=== PATIENT | female | born 1940 | race Two or more races ===

== ENCOUNTER 2022-04-14 16:41 | Inpatient (IN) | payer MEDICARE, OTHER ==
[~2022-04-14] VITALS: Ht 121.9 cm; Wt 34.5 kg
[2022-04-14] MEDS ORDERED: ACETAMINOPHEN 325 MG TABLET PO ONE (20:00)
[2022-04-14] MEDS ORDERED: ACETAMINOPHEN 325 MG TABLET ONE (20:02)
[2022-04-14 21:06] LABS: BASOPHILS # (AUTO) 0.1 K/uL (0.0-0.2); BASOPHILS % (AUTO) 0.8 % (0.0-2.0); EOSINOPHILS % (AUTO) 1.4 % (0.0-6.0); HEMATOCRIT 38 % (33-45); HEMOGLOBIN 11.9 g/dL (11.5-14.8); LYMPHOCYTES # (AUTO) 1.2 K/uL (0.8-4.8); LYMPHOCYTES % (AUTO) 15.9 % (20.0-44.0); MEAN CORPUSCULAR HGB CONC 32 g/dl (31.0-36.0); MEAN CORPUSCULAR VOLUME 87 fL (82-100); MONOCYTES # (AUTO) 0.5 K/uL (0.1-1.30); NEUTROPHILS # (AUTO) 5.7 K/uL (1.8-8.9); NEUTROPHILS % (AUTO) 75.9 % (43.0-81.0); RED BLOOD CELL COUNT(AUTO) 4.34 MIL/uL (4.0-5.2); WHITE BLOOD COUNT (AUTO) 7.5 K/uL (4.3-11.0)
[2022-04-14 21:13] LABS: CALCIUM, SERUM 8.5 mg/dL (8.5-10.1); CREATININE 0.8 mg/dL (0.6-1.3); POTASSIUM 3.8 mmol/L (3.5-5.1)
[2022-04-14 21:20] LABS: ALBUMIN 3.3 g/dL (3.4-5.0); BILIRUBIN,DIRECT 0.1 mg/dL (0.0-0.2); BILIRUBIN,TOTAL 0.4 mg/dL (0.2-1.0); TOTAL PROTEIN, SERUM 7.1 g/dL (6.4-8.2)
[2022-04-14 21:49] LABS: PLATELET COUNT (AUTO) 41 K/uL (150-450)
[2022-04-14 21:54] LABS: LYMPHOCYTES % (MANUAL) 29 % (16-48); MONOCYTES % (MANUAL) 4 % (0-11.0); NEUTROPHILS % (MANUAL) 67 (42-76)
[2022-04-14] MEDS ORDERED: ACETAMINOPHEN 325 MG TABLET PO PRN (22:00)
[2022-04-14] MEDS ORDERED: MORPHINE SULFATE INJ 2 MG/ML DISP.SYRIN IV PRN (22:00)
[2022-04-14] MEDS ORDERED: ONDANSETRON HCL/PF 4 MG/2 ML VIAL IVP PRN (22:00)
[2022-04-14] MEDS ORDERED: ENOXAPARIN SODIUM 40 MG/0.4 ML DISP.SYRIN SQ SCH (22:00)
[2022-04-14 23:00] VITALS: BP 159/100
[2022-04-15 06:41] LABS: BASOPHILS # (AUTO) 0.1 K/uL (0.0-0.2); BASOPHILS % (AUTO) 0.9 % (0.0-2.0); EOSINOPHILS % (AUTO) 2.7 % (0.0-6.0); HEMATOCRIT 33 % (33-45); HEMOGLOBIN 10.4 g/dL (11.5-14.8); LYMPHOCYTES # (AUTO) 1.5 K/uL (0.8-4.8); MEAN CORPUSCULAR HGB CONC 32 g/dl (31.0-36.0); MEAN CORPUSCULAR VOLUME 87 fL (82-100); MONOCYTES # (AUTO) 0.5 K/uL (0.1-1.30); MONOCYTES % (AUTO) 7.4 % (2.0-12.0); NEUTROPHILS # (AUTO) 5.1 K/uL (1.8-8.9); RED BLOOD CELL COUNT(AUTO) 3.76 MIL/uL (4.0-5.2); WHITE BLOOD COUNT (AUTO) 7.4 K/uL (4.3-11.0)
[2022-04-15 06:43] LABS: ALBUMIN 2.8 g/dL (3.4-5.0); BILIRUBIN,TOTAL 0.6 mg/dL (0.2-1.0); CALCIUM, SERUM 8.2 mg/dL (8.5-10.1); CREATININE 0.6 mg/dL (0.6-1.3); MAGNESIUM 2.2 mg/dL (1.8-2.4); PHOSPHORUS 3.1 mg/dL (2.5-4.9); POTASSIUM 3.3 mmol/L (3.5-5.1); TOTAL PROTEIN, SERUM 6.1 g/dL (6.4-8.2)
[2022-04-15 08:00] VITALS: BP 90/50
[2022-04-15] MEDS ORDERED: LETR2.5T8 PO (09:51)
[2022-04-15] MEDS ORDERED: METO25TA20 PO (09:51)
[2022-04-15] MEDS ORDERED: POTASSIUM CHLORIDE 20 MEQ TAB.PRT.SR PO SCH (10:00)
[2022-04-15 13:18] LABS: NEUTROPHILS % (MANUAL) 83 (42-76); PLATELET COUNT (AUTO) 85 K/uL (150-450)
[2022-04-15 13:19] LABS: BAND % (MANUAL) 2 % (0.0-5.0); EOSINOPHILS % (MANUAL) 2 % (0-4); LYMPHOCYTES % (MANUAL) 10 % (16-48); MONOCYTES % (MANUAL) 3 % (0-11.0)
[2022-04-15 13:55] LABS: C-REACTIVE PROTEIN 0.3 mg/dL (0.0-0.9); THYROID STIMULATING HORMONE 2.508 uIU/mL (0.358-3.74)
[2022-04-15] MEDS ORDERED: LETROZOLE 2.5 MG TABLET PO SCH (15:00)
[2022-04-15 16:00] VITALS: BP 100/56
[2022-04-15 20:00] VITALS: BP 90/58
[2022-04-15] MEDS ORDERED: HYDROCODONE/APAP 5/325MG TABLET PO PRN (22:00)
[2022-04-16 08:00] VITALS: BP 150/94
[2022-04-16 08:07] LABS: IMMUNOGLOBULIN A, SERUM 244 mg/dL (64-422); IMMUNOGLOBULIN G, SERUM 1000 mg/dL (586-1602); IMMUNOGLOBULIN M, SERUM 44 mg/dL (26-217)
[2022-04-16 11:07] LABS: *ANA ANTI-CENTROMERE B AB <0.2 AI (0.0-0.9); *ANA ANTI-DNA(DS) AB, QN <1 IU/mL (0-9); *ANA ANTI-JO-1 <0.2 AI (0.0-0.9); *ANA ANTICHROMATIN ANTIBODY 2.5 AI (0.0-0.9); *ANA RNP ANTIBODIES 0.2 AI (0.0-0.9); *ANA SJOGREN'S ANTI-SS-A <0.2 AI (0.0-0.9); *ANA SJOGREN'S ANTI-SS-B <0.2 AI (0.0-0.9); *ANAANTI-SCLERODERMA-70 AB <0.2 AI (0.0-0.9); *ANASMITH AB >8.0 AI (0.0-0.9)
[2022-04-16 12:07] LABS: CANCER AG, 15-3 14.6 U/mL (0.0-25.0)
[2022-04-16 13:06] LABS: *SPE ALPHA-1-GLOBULIN 0.3 g/dL (0.0-0.4); *SPE ALPHA-2-GLOBULIN 0.6 g/dL (0.4-1.0); *SPE BETA GLOBULIN 0.9 g/dL (0.7-1.3); *SPE M-SPIKE Not Observed g/dL (Not Observed)
[2022-04-16 15:46] LABS: BASOPHILS % (AUTO) 0.5 % (0.0-2.0); HEMATOCRIT 36 % (33-45); HEMOGLOBIN 11.3 g/dL (11.5-14.8); LYMPHOCYTES # (AUTO) 0.7 K/uL (0.8-4.8); LYMPHOCYTES % (AUTO) 7.7 % (20.0-44.0); MEAN CORPUSCULAR HGB CONC 32 g/dl (31.0-36.0); MEAN CORPUSCULAR VOLUME 86 fL (82-100); MONOCYTES # (AUTO) 0.6 K/uL (0.1-1.30); MONOCYTES % (AUTO) 6.5 % (2.0-12.0); NEUTROPHILS # (AUTO) 8.2 K/uL (1.8-8.9); NEUTROPHILS % (AUTO) 85.3 % (43.0-81.0); RED BLOOD CELL COUNT(AUTO) 4.15 MIL/uL (4.0-5.2); WHITE BLOOD COUNT (AUTO) 9.6 K/uL (4.3-11.0)
[2022-04-16 15:48] LABS: BILIRUBIN,URINE NEGATIVE (NEGATIVE); COLOR,URINE YELLOW (YELLOW); LEUKOCYTE ESTERASE ,URINE NEGATIVE (NEGATIVE); NITRITE, URINE NEGATIVE (NEGATIVE); PROTEIN,URINE 1+ mg/dl (NEGATIVE); UGLUCOSE NEGATIVE (NEGATIVE)
[2022-04-16 15:58] LABS: BACTERIA,URINE None seen /HPF (None Seen); MUCUS,URINE Few /LPF (None Seen); SQUAMOUS EPITHELIAL CELL,UR 0-2 /HPF (None Seen); WBC,URINE 0-2 /HPF (0-3)
[2022-04-16 16:00] VITALS: BP 143/98
[2022-04-16 16:09] LABS: PLATELET COUNT (AUTO) 19 K/uL (150-450)
[2022-04-16 19:17] LABS: BAND % (MANUAL) 4 % (0.0-5.0); LYMPHOCYTES % (MANUAL) 6 % (16-48); MONOCYTES % (MANUAL) 3 % (0-11.0); NEUTROPHILS % (MANUAL) 87 (42-76)
[2022-04-16] MEDS: CEFTRIAXONE 1 G in IV D5W 50 ML IV SCH ×2 (21:00→21:03)
[2022-04-16] MEDS: LETROZOLE 2.5 MG TABLET PO SCH (21:06)
[2022-04-17 08:00] VITALS: BP 154/95
[2022-04-17 08:23] LABS: BASOPHILS # (AUTO) 0.1 K/uL (0.0-0.2); BASOPHILS % (AUTO) 0.7 % (0.0-2.0); EOSINOPHILS % (AUTO) 0.5 % (0.0-6.0); HEMATOCRIT 33 % (33-45); HEMOGLOBIN 10.7 g/dL (11.5-14.8); LYMPHOCYTES # (AUTO) 1.3 K/uL (0.8-4.8); LYMPHOCYTES % (AUTO) 16.3 % (20.0-44.0); MEAN CORPUSCULAR HGB CONC 32 g/dl (31.0-36.0); MEAN CORPUSCULAR VOLUME 86 fL (82-100); MONOCYTES # (AUTO) 0.7 K/uL (0.1-1.30); MONOCYTES % (AUTO) 8.4 % (2.0-12.0); NEUTROPHILS # (AUTO) 5.8 K/uL (1.8-8.9); NEUTROPHILS % (AUTO) 74.1 % (43.0-81.0); RED BLOOD CELL COUNT(AUTO) 3.86 MIL/uL (4.0-5.2); WHITE BLOOD COUNT (AUTO) 7.8 K/uL (4.3-11.0)
[2022-04-17 08:25] LABS: CALCIUM, SERUM 8.4 mg/dL (8.5-10.1); CARBON DIOXIDE 26 mmol/L (21-32); CHLORIDE 103 mmol/L (98-107); CREATININE 0.8 mg/dL (0.6-1.3); GLUCOSE 74 mg/dL (74-106); MAGNESIUM 2.2 mg/dL (1.8-2.4); PHOSPHORUS 3.9 mg/dL (2.5-4.9); POTASSIUM 3.3 mmol/L (3.5-5.1); SODIUM SERUM 137 mmol/L (136-145); UREA NITROGEN, BLOOD 34 mg/dL (7-18)
[2022-04-17 08:31] VITALS: BP 154/95
[2022-04-17] MEDS: LETROZOLE 2.5 MG TABLET PO SCH (09:00)
[2022-04-17] MEDS ORDERED: POTASSIUM CHLORIDE 20 MEQ TAB.PRT.SR PO SCH (10:30)
[2022-04-17 13:15] LABS: BAND % (MANUAL) 5 % (0.0-5.0); NEUTROPHILS % (MANUAL) 72 (42-76)
[2022-04-17 13:16] LABS: EOSINOPHILS % (MANUAL) 1 % (0-4); LYMPHOCYTES % (MANUAL) 15 % (16-48); MONOCYTES % (MANUAL) 7 % (0-11.0)
[2022-04-17 16:17] VITALS: BP 145/84
[2022-04-17] MEDS ORDERED: POTASSIUM CHLORIDE 20 MEQ POWDER PACKET GT ONE (19:00)
[2022-04-17] MEDS: CEFTRIAXONE 1 G in IV D5W 50 ML IV SCH ×3 (20:35→21:00)
[2022-04-17 20:39] VITALS: BP 104/61
[2022-04-18 08:03] VITALS: BP 158/92
[2022-04-18] MEDS: LETROZOLE 2.5 MG TABLET PO SCH (09:00)
[2022-04-18 09:10] LABS: CALCIUM, SERUM 8.2 mg/dL (8.5-10.1); CREATININE 0.8 mg/dL (0.6-1.3); MAGNESIUM 2.2 mg/dL (1.8-2.4); PHOSPHORUS 3.4 mg/dL (2.5-4.9); POTASSIUM 3.6 mmol/L (3.5-5.1)
[2022-04-18 09:34] LABS: BASOPHILS # (AUTO) 0.1 K/uL (0.0-0.2); BASOPHILS % (AUTO) 0.5 % (0.0-2.0); EOSINOPHILS % (AUTO) 0.3 % (0.0-6.0); HEMATOCRIT 33 % (33-45); HEMOGLOBIN 10.4 g/dL (11.5-14.8); LYMPHOCYTES % (AUTO) 9.7 % (20.0-44.0); MEAN CORPUSCULAR HGB CONC 32 g/dl (31.0-36.0); MEAN CORPUSCULAR VOLUME 86 fL (82-100); MONOCYTES # (AUTO) 0.8 K/uL (0.1-1.30); MONOCYTES % (AUTO) 7.3 % (2.0-12.0); NEUTROPHILS # (AUTO) 8.7 K/uL (1.8-8.9); NEUTROPHILS % (AUTO) 82.2 % (43.0-81.0); RED BLOOD CELL COUNT(AUTO) 3.78 MIL/uL (4.0-5.2); WHITE BLOOD COUNT (AUTO) 10.5 K/uL (4.3-11.0)
[2022-04-18 10:03] LABS: PLATELET COUNT (AUTO) 53 K/uL (150-450)
[2022-04-18 10:09] LABS: BASOPHILS % (MANUAL) 0 % (0.0-2.0); EOSINOPHILS % (MANUAL) 0 % (0-4); LYMPHOCYTES % (MANUAL) 11 % (16-48); MONOCYTES % (MANUAL) 6 % (0-11.0); NEUTROPHILS % (MANUAL) 83 (42-76)
[2022-04-18 16:18] VITALS: BP 115/75
[2022-04-18] MEDS: ENSURE ENLIVE CHOC 237 ML CAN PO SCH (17:41)
[2022-04-18 20:00] VITALS: BP 149/88
[2022-04-18] MEDS: CEFTRIAXONE 1 G in IV D5W 50 ML IV SCH (21:00)
[2022-04-19 06:31] LABS: BASOPHILS % (AUTO) 0.5 % (0.0-2.0); EOSINOPHILS % (AUTO) 1.7 % (0.0-6.0); HEMATOCRIT 32 % (33-45); HEMOGLOBIN 10.2 g/dL (11.5-14.8); LYMPHOCYTES # (AUTO) 1.1 K/uL (0.8-4.8); LYMPHOCYTES % (AUTO) 12.9 % (20.0-44.0); MEAN CORPUSCULAR HGB CONC 32 g/dl (31.0-36.0); MEAN CORPUSCULAR VOLUME 86 fL (82-100); MONOCYTES # (AUTO) 0.7 K/uL (0.1-1.30); MONOCYTES % (AUTO) 7.5 % (2.0-12.0); NEUTROPHILS # (AUTO) 6.8 K/uL (1.8-8.9); NEUTROPHILS % (AUTO) 77.4 % (43.0-81.0); RED BLOOD CELL COUNT(AUTO) 3.67 MIL/uL (4.0-5.2); WHITE BLOOD COUNT (AUTO) 8.7 K/uL (4.3-11.0)
[2022-04-19 06:58] LABS: CALCIUM, SERUM 8.4 mg/dL (8.5-10.1); CREATININE 0.7 mg/dL (0.6-1.3); MAGNESIUM 2.3 mg/dL (1.8-2.4); PHOSPHORUS 3.2 mg/dL (2.5-4.9); POTASSIUM 3.7 mmol/L (3.5-5.1)
[2022-04-19 08:00] VITALS: BP 159/86
[2022-04-19] MEDS: ENSURE ENLIVE CHOC 237 ML CAN PO SCH ×2 (08:00→17:00)
[2022-04-19 08:20] LABS: PLATELET COUNT (AUTO) 91 K/uL (150-450)
[2022-04-19] MEDS: LETROZOLE 2.5 MG TABLET PO SCH (10:39)
[2022-04-19 13:23] LABS: BASOPHILS % (MANUAL) 0 % (0.0-2.0); EOSINOPHILS % (MANUAL) 4 % (0-4); LYMPHOCYTES % (MANUAL) 15 % (16-48); METAMYELOCYTES % 0 % (0-0); MONOCYTES % (MANUAL) 8 % (0-11.0); NEUTROPHILS % (MANUAL) 73 (42-76)
[2022-04-19] MEDS ORDERED: SALINE NASAL SPRAY 0.65% 1 BOTTLE BOTTLE NS PRN (14:00)
[2022-04-19] MEDS: MULTIVITAMIN/LUTEIN/MINERALS 1 TAB PO SCH ×2 (15:14→21:01)
[2022-04-19 16:00] VITALS: BP 134/76
[2022-04-19 20:00] VITALS: BP 152/76
[2022-04-20 07:00] VITALS: BP 143/68
[2022-04-20] MEDS: MULTIVITAMIN/LUTEIN/MINERALS 1 TAB PO SCH ×2 (08:32→20:28)
[2022-04-20] MEDS: LETROZOLE 2.5 MG TABLET PO SCH (08:32)
[2022-04-20] MEDS: ENSURE ENLIVE CHOC 237 ML CAN PO SCH ×2 (08:33→17:17)
[2022-04-20] MEDS ORDERED: MULTIVITAMIN/LUTEIN/MINERALS 1 TAB PO ONE (09:00)
[2022-04-20 16:00] VITALS: BP 130/73
[2022-04-20 20:00] VITALS: BP 138/77
[2022-04-21 08:00] VITALS: BP 158/99
[2022-04-21] MEDS: ENSURE ENLIVE CHOC 237 ML CAN PO SCH ×2 (08:36→17:01)
[2022-04-21] MEDS: LETROZOLE 2.5 MG TABLET PO SCH ×2 (09:00→09:31)
[2022-04-21] MEDS: MULTIVITAMIN/LUTEIN/MINERALS 1 TAB PO SCH ×2 (09:30→21:00)
[2022-04-21 09:48] LABS: BASOPHILS # (AUTO) 0.1 K/uL (0.0-0.2); BASOPHILS % (AUTO) 0.8 % (0.0-2.0); EOSINOPHILS % (AUTO) 4.5 % (0.0-6.0); HEMATOCRIT 32 % (33-45); LYMPHOCYTES # (AUTO) 1.1 K/uL (0.8-4.8); LYMPHOCYTES % (AUTO) 18.2 % (20.0-44.0); MEAN CORPUSCULAR HGB CONC 32 g/dl (31.0-36.0); MEAN CORPUSCULAR VOLUME 87 fL (82-100); MONOCYTES # (AUTO) 0.4 K/uL (0.1-1.30); MONOCYTES % (AUTO) 6.4 % (2.0-12.0); NEUTROPHILS # (AUTO) 4.4 K/uL (1.8-8.9); NEUTROPHILS % (AUTO) 70.1 % (43.0-81.0); RED BLOOD CELL COUNT(AUTO) 3.62 MIL/uL (4.0-5.2); WHITE BLOOD COUNT (AUTO) 6.3 K/uL (4.3-11.0)
[2022-04-21 10:00] LABS: CALCIUM, SERUM 8.6 mg/dL (8.5-10.1); CREATININE 0.7 mg/dL (0.6-1.3); MAGNESIUM 2.4 mg/dL (1.8-2.4); PHOSPHORUS 3.2 mg/dL (2.5-4.9); POTASSIUM 3.7 mmol/L (3.5-5.1)
[2022-04-21 11:56] LABS: PLATELET COUNT (AUTO) 120 K/uL (150-450)
[2022-04-21 16:00] VITALS: BP 129/77
[2022-04-21 20:00] VITALS: BP 148/70
[2022-04-21] MEDS ORDERED: LETROZOLE 2.5 MG TABLET PO SCH (22:00)
[2022-04-22 08:00] VITALS: BP 158/87
[2022-04-22] MEDS: MULTIVITAMIN/LUTEIN/MINERALS 1 TAB PO SCH (09:00)
[2022-04-22] MEDS: ENSURE ENLIVE CHOC 237 ML CAN PO SCH ×2 (09:13→17:13)
[2022-04-22 16:00] VITALS: BP 152/79
== END 2022-04-22 19:40 | DRG 563 ==
LOC: ER 16:54 → MED 21:31
PROVIDERS: ADMIT Internal Medicine; ATTEND Nurse Practitioner Family
DX: S82.145A Nondisplaced bicondylar fracture of left tibia, initial encounter for closed fracture (principal); D61.818 Other pancytopenia; S00.03XA Contusion of scalp, initial encounter; Y92.89 Other specified places as the place of occurrence of the external cause; D69.6 Thrombocytopenia, unspecified; Z20.822 Contact with and (suspected) exposure to COVID-19; I10 Essential (primary) hypertension; W01.198A Fall on same level from slipping, tripping and stumbling with subsequent striking against other object, initial encounter; Y92.481 Parking lot as the place of occurrence of the external cause; E88.09 Other disorders of plasma-protein metabolism, not elsewhere classified; S00.81XA Abrasion of other part of head, initial encounter; S00.211A Abrasion of right eyelid and periocular area, initial encounter; Z80.7 Family history of other malignant neoplasms of lymphoid, hematopoietic and related tissues; F17.200 Nicotine dependence, unspecified, uncomplicated; E87.6 Hypokalemia; C50.919 Malignant neoplasm of unspecified site of unspecified female breast; Z92.21 Personal history of antineoplastic chemotherapy
CPT/HCPCS: 36415; 70450-TC; 71045-TC; 73564-TC; 73700-TC; 80048-TC; 80053-TC; 80076-TC; 81001; 82378; 82607-TC; 82728-TC; 82784; 83010; 83540-TC; 83615-TC; 83735-TC; 84100-TC; 84155; 84165; 84443-TC; 85025-TC; 85045-TC; 85610-TC; 85730-TC; 86140-TC; 86225; 86235; 86300; 86334; 86431-TC; 86706; 86803; 86880-TC; 87040-TC; 87081-TC; 87086-TC; 87340; 97112-TC; 97116-TC; 97530-TC; 97535-TC; A6403; G0378; J0696; J7060

== ENCOUNTER 2022-05-17 15:20 | Inpatient (IN) | payer OTHER ==
[~2022-05-17] VITALS: Ht 149.9 cm; Wt 34.0 kg
[~2022-05-17 15:20] MED LIST: LETR2.5T8 PO; METO25TA20 PO
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
--- NOTE | 2022-05-17 16:15 | NUR ---
MOVE SHEET SUBMITTED.
--- NOTE | 2022-05-17 17:05 | NUR ---
COVID SWAB COLLECTED AND SENT TO LAB
[2022-05-17 17:13] LABS: BASOPHILS % (AUTO) 0.3 % (0.0-2.0); EOSINOPHILS % (AUTO) 0.2 % (0.0-6.0); HEMATOCRIT 35 % (33-45); HEMOGLOBIN 11.1 g/dL (11.5-14.8); LYMPHOCYTES # (AUTO) 0.6 K/uL (0.8-4.8); MEAN CORPUSCULAR HGB CONC 32 g/dl (31.0-36.0); MEAN CORPUSCULAR VOLUME 84 fL (82-100); MONOCYTES # (AUTO) 0.3 K/uL (0.1-1.30); MONOCYTES % (AUTO) 3.4 % (2.0-12.0); NEUTROPHILS # (AUTO) 8.8 K/uL (1.8-8.9); NEUTROPHILS % (AUTO) 90.1 % (43.0-81.0); PLATELET COUNT (AUTO) 65 K/uL (150-450); RED BLOOD CELL COUNT(AUTO) 4.17 MIL/uL (4.0-5.2); WHITE BLOOD COUNT (AUTO) 9.7 K/uL (4.3-11.0)
[2022-05-17 17:14] LABS: CALCIUM, SERUM 8.7 mg/dL (8.5-10.1); CREATININE 1.1 mg/dL (0.6-1.3); POTASSIUM 3.2 mmol/L (3.5-5.1)
[2022-05-17 17:29] LABS: BILIRUBIN,DIRECT 0.2 mg/dL (0.0-0.2); BILIRUBIN,TOTAL 0.6 mg/dL (0.2-1.0); TOTAL PROTEIN, SERUM 6.7 g/dL (6.4-8.2)
--- NOTE | 2022-05-17 17:55 | NUR ---
FRANKY WARREN (CLOSE FRIEND) [phone] SHELBIE MURPHY (SISTER) [phone]
[2022-05-17 18:36] LABS: EOSINOPHILS % (MANUAL) 1 % (0-4); LYMPHOCYTES % (MANUAL) 4 % (16-48); MONOCYTES % (MANUAL) 4 % (0-11.0); NEUTROPHILS % (MANUAL) 91 (42-76)
[2022-05-17] MEDS ORDERED: MAG HYDROX/AL HYDROX/SIMETH 30 ML UDC PO PRN (23:00)
[2022-05-17] MEDS ORDERED: Z GUARD REMEDY 4 OZ OINT TP PRN (23:00)
[2022-05-17] MEDS ORDERED: ONDANSETRON HCL/PF 4 MG/2 ML VIAL IVP PRN (23:00)
[2022-05-17] MEDS ORDERED: HYDROCODONE/APAP 5/325MG TABLET PO PRN (23:00)
[2022-05-17] MEDS ORDERED: MAGNESIUM HYDROXIDE 30 ML UDC PO PRN (23:00)
[2022-05-17] MEDS ORDERED: ACETAMINOPHEN 325 MG TABLET PO PRN (23:00)
--- NOTE | 2022-05-17 23:01 | NUR ---
PT GOING TO 325-2 PER RN SUP
--- NOTE | 2022-05-18 00:40 | NUR ---
PT TRANSFERRED TO [facility] VIA HOSPITAL PROTOCOL. VSS.
[2022-05-18 00:45] VITALS: BP 156/92
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
--- NOTE | 2022-05-18 01:28 | NUR ---
RN Note Patient's potassium level is 3.2. Platelet ct is 65. inbound call center representative hospitalist Deloris Friedman NP notified; awaiting for reply.
--- NOTE | 2022-05-18 01:34 | NUR ---
RN Note Platelet ct is 65. call centre supervisor hospitalist Deloris Friedman NP notified and ordered okay to give Lovenox.
--- NOTE | 2022-05-18 01:50 | NUR ---
RN Note gas system operator hospitalist Deloris Friedman NP notified that patient's potassium level is 3.2 and asked if she want it replaced? She replied "no".
[2022-05-18] MEDS: ENOXAPARIN SODIUM 30 MG/0.3 ML DISP.SYRIN SQ SCH ×2 (02:00→20:35)
--- NOTE | 2022-05-18 02:09 | NUR ---
RN Note Lovenox 30 mg SQ held per patient's request. Explained risk and benefits of medical regimen x 3; patient still refuse to receive Lovenox.
[2022-05-18] MEDS ORDERED: IV NS 0.9% 1,000 ML IV SCH (02:30)
[2022-05-18 03:21] VITALS: BP 156/92
--- NOTE | 2022-05-18 03:29 | NUR ---
RN Note Patient refused to have IV insertion. Explained benefits and risks of following medical regimen; still patient refused. Charge Nurse Irina aware.
[2022-05-18 05:50] LABS: BASOPHILS # (AUTO) 0.1 K/uL (0.0-0.2); BASOPHILS % (AUTO) 0.6 % (0.0-2.0); EOSINOPHILS % (AUTO) 1.9 % (0.0-6.0); HEMATOCRIT 34 % (33-45); HEMOGLOBIN 10.7 g/dL (11.5-14.8); LYMPHOCYTES # (AUTO) 1.6 K/uL (0.8-4.8); LYMPHOCYTES % (AUTO) 17.4 % (20.0-44.0); MEAN CORPUSCULAR HGB CONC 31 g/dl (31.0-36.0); MEAN CORPUSCULAR VOLUME 86 fL (82-100); MONOCYTES # (AUTO) 0.6 K/uL (0.1-1.30); MONOCYTES % (AUTO) 6.5 % (2.0-12.0); NEUTROPHILS # (AUTO) 6.8 K/uL (1.8-8.9); NEUTROPHILS % (AUTO) 73.6 % (43.0-81.0); RED BLOOD CELL COUNT(AUTO) 3.99 MIL/uL (4.0-5.2); WHITE BLOOD COUNT (AUTO) 9.2 K/uL (4.3-11.0)
[2022-05-18 06:26] LABS: CALCIUM, SERUM 8.5 mg/dL (8.5-10.1); CREATININE 0.9 mg/dL (0.6-1.3); MAGNESIUM 2.4 mg/dL (1.8-2.4); PHOSPHORUS 3.8 mg/dL (2.5-4.9); POTASSIUM 3.3 mmol/L (3.5-5.1)
--- NOTE | 2022-05-18 07:00 | NUR ---
MS RN Opening Note Patient in bed; awake, a/o x 4. Stable on room air. Breathing equal and unlabored, denies pain and discomfort, no acute distress. No IV access Per shift supervisor melting nurse, patient refused insertion. Safety precautions maintained: call light and table within reach, side rails up x 2, bed in lowest locked position. Will continue to monitor the patient.
--- NOTE | 2022-05-18 07:10 | NUR ---
MS RN Closing Note Patient in bed; awake, a/o x 4. Stable on room air. Breathing equal and unlabored. In no acute distress. Denies any pain or discomfort at this time. No IV access. Safety precautions maintained: call light and table within reach, side rails up x 2, bed in lowest locked position. Endorsed to morning shift for alfreda.
[2022-05-18] MEDS: PANTOPRAZOLE 40 MG TABLET.DR PO SCH (07:30)
[2022-05-18 08:27] LABS: PLATELET COUNT (AUTO) 41 K/uL (150-450)
--- NOTE | 2022-05-18 08:29 | NUR ---
RECEIVED CRITICAL CALL FROM JORDAN (LAB) @[phone], PLATELET LOW AT 41. YOANA REILLYY INFORMED (INCLUDES POTASSIUM AT LOW LEVEL OF 3.3).
[2022-05-18 08:38] VITALS: BP 154/73
[2022-05-18 08:41] LABS: LYMPHOCYTES % (MANUAL) 15 % (16-48); MONOCYTES % (MANUAL) 2 % (0-11.0); NEUTROPHILS % (MANUAL) 83 (42-76)
--- NOTE | 2022-05-18 08:45 | NUR ---
PATIENT REFUSED LETROZOLE 25 MG PO DAILY & METOPROLOL TARTRATE 25 MG DAILY INCLUDING EARLIER MED-ACB PANTOPRAZOLE 40 MG PO. DESPITE EDUCATING THE PATIENT ABOUT IMPORTANCE OF MEDICATIONS REGIMEN, PATIENT STILL REFUSED.
[2022-05-18] MEDS: LETROZOLE 2.5 MG TABLET PO SCH (09:00)
[2022-05-18] MEDS: METOPROLOL TARTRATE 25 MG TABLET PO SCH (09:00)
[2022-05-18 09:01] LABS: THYROID STIMULATING HORMONE 3.024 uIU/mL (0.358-3.74)
[2022-05-18] MEDS ORDERED: IV NS 0.9% 1,000 ML IV PRN (09:50)
[2022-05-18] MEDS ORDERED: POTASSIUM CHLORIDE 20 MEQ TAB.PRT.SR PO SCH (11:30)
[2022-05-18] MEDS: ENSURE ENLIVE 237 ML LIQUID (VANILLA) PO SCH ×2 (12:55→17:23)
[2022-05-18 16:51] VITALS: BP 148/79
[2022-05-18] MEDS: PROSOURCE / PROSTAT (PYXIS) 30 ML UDC GT SCH (17:31)
[2022-05-18 20:00] VITALS: BP 132/72
--- NOTE | 2022-05-19 06:12 | NUR ---
PATIENT REFUSED AM LABS. AGREED FOR CONTINUOUS MINER OPERATOR TO COME BACK AT 1130AM
--- NOTE | 2022-05-19 06:19 | NUR ---
MS RN Closing Note Patient in bed; awake, a/o x 4. Stable on room air. Breathing equal and unlabored, denies pain or discomfort, no acute distress. No IV access. Safety precautions maintained: call light and table within reach, side rails up x 2, bed in lowest locked position. Endorsed to day shift nurse for alfreda.
--- NOTE | 2022-05-19 07:21 | NUR ---
MS RN OPENING NOTE RECEIVED PATIENT ASLEEP BUT EASILY WOKEN UP BY TOUCH, PATIENT IS ALERT AND ORIENTED X 4, REQUESTING TO JUST SLEEP, CLAIMS SHE ONLY SLEPT X 2 HOURS LAST NIGHT AND HAD TO BE MOVED ROOMS. PATIENT IS ON ROOM AIR, WITH EQUAL AND UNLABORED BREATHING WITH NO SIGNS OF RESPIRATORY DISTRESS. PATIENT APPARENTLY WAS REFUSING IV INSERTION, MD NOTIFIED. COMFORT MEASURES PROVIDED. SAFETY MEASURES ENSURED WITH BED IN LOW AND LOCK IN POSITION WITH SIDE RAILS X2 UP AND BED ALARM SET FOR SAFETY. CALL LIGHT WITHIN REACH AT ALL TIMES. WILL CONTINUE WITH PLAN OF CARE.
[2022-05-19] MEDS: PANTOPRAZOLE 40 MG TABLET.DR PO SCH (07:30)
[2022-05-19] MEDS: ENSURE ENLIVE 237 ML LIQUID (VANILLA) PO SCH ×3 (08:00→17:43)
[2022-05-19 08:16] VITALS: BP 164/83
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
[2022-05-19] MEDS: METOPROLOL TARTRATE 25 MG TABLET PO SCH (08:49)
[2022-05-19] MEDS: PROSOURCE / PROSTAT (PYXIS) 30 ML UDC GT SCH ×2 (09:00→17:43)
[2022-05-19] MEDS: LETROZOLE 2.5 MG TABLET PO SCH (09:00)
--- NOTE | 2022-05-19 10:00 | NUR ---
MS RN NOTE REFUSING TO DO ANYTHING AND DOESNT WANT TO TAKE OFF JACKET FOR STAT EKG AND ECHO. SHE SAID SHE WANTS TO SLEEP. EXPLAINED THE IMPORTANCE OF MD ORDER BUT STILL WANTS TO SLEEP. COMFORT MEASURES PROVIDED.
[2022-05-19] MEDS: NEOMY SULF/BACITRAC ZN/POLY 15 GM TUBE TP SCH ×2 (10:20→17:44)
--- NOTE | 2022-05-19 10:26 | NUR ---
RT Pt refusing scheduled EKG at this time. RN aware
[2022-05-19] MEDS ORDERED: MULT-479 PO (10:42)
[2022-05-19] MEDS: MULTIVITAMIN/LUTEIN/MINERALS 1 TAB PO SCH (11:00)
[2022-05-19 11:48] LABS: CALCIUM, SERUM 8.3 mg/dL (8.5-10.1); CREATININE 0.8 mg/dL (0.6-1.3); POTASSIUM 3.4 mmol/L (3.5-5.1)
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
--- NOTE | 2022-05-19 12:04 | NUR ---
APS REPORT: SERA filed for APS through [facility] intake #[id number] for self-neglect at home. Addendum: 05/19/22 at 1205 by SERA AMAYA SERA placed copy in patient's chart.
--- NOTE | 2022-05-19 12:50 | NUR ---
MS RN NOTE INITIALLY PATIENT WAS SAYING THAT SHE NEEDS THE MEDICATION FOR HER EYES OCUVITE. TOOK OUT MEDICATION FROM THE OMNICEL AND PATIENT SAID IT IS NOT OCUVITE, I EXPLAINED TO HER THAT WE ONLY HAVE I-LIZET BIT HAVE THE SAME GENERIC NAME OF OCUVITE. PATIENT REFUSED TO TAKE MEDICATION AT THIS TIME. SHE SAID SHE WILL TAKE IT WHEN SHE HAVE SOMETIHING TO EAT BUT REFUSED TO EAT ANYTHING AT THIS TIME. SHE SAID SHE WILL SLEEP FIRST BECAUSE SHE SLEPT ONLY FOR 2 HOURS LAST NIGHT. PROVIDED WITH CALM AND QUIET ENVIRONMENT. MD AWARE OF PATIENT'S NON-COMPLIANT ATTITUDE.
[2022-05-19 16:06] VITALS: BP 135/78
--- NOTE | 2022-05-19 18:33 | NUR ---
MS RN CLOSING NOTE PATIENT IS ALERT AND ORIENTED X 4, PATIENT IS ON ROOM AIR, WITH EQUAL AND UNLABORED BREATHING WITH NO SIGNS OF RESPIRATORY DISTRESS. PATIENT STILL REFUSING IV INSERTION, MD AWARE. COMFORT MEASURES PROVIDED. SAFETY MEASURES ENSURED WITH BED IN LOW AND LOCK IN POSITION WITH SIDE RAILS X2 UP AND BED ALARM SET FOR SAFETY. CALL LIGHT WITHIN REACH AT ALL TIMES. WILL ENDORSE TO NEXT SHIFT FOR CONTIUITY OF CARE.
[2022-05-19 20:00] VITALS: BP 144/79
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
[2022-05-19] MEDS: SILVER SULFADIAZINE CREAM 25 GM TUBE TP SCH (20:30)
[2022-05-19] MEDS: ENOXAPARIN SODIUM 30 MG/0.3 ML DISP.SYRIN SQ SCH ×2 (21:00→21:05)
--- NOTE | 2022-05-19 21:00 | NUR ---
RN NOTES PATIENT REFUSED LENOVOX 30MG DESPITE OF EXPLAINING THE MEDICATION. WILL CONTINUE TO MONITOR.
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
--- NOTE | 2022-05-20 06:47 | NUR ---
NOTES PATIENT REFUSED TO BLOOD EXTRACTION FOR AM LABORATORY. HOSPITALIST ON DUTY INFORM. WILL CONTINUE TO MONITOR.
[2022-05-20 07:00] VITALS: BP 158/79
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
[2022-05-20] MEDS: PANTOPRAZOLE 40 MG TABLET.DR PO SCH (07:30)
[2022-05-20] MEDS: ENSURE ENLIVE 237 ML LIQUID (VANILLA) PO SCH ×3 (08:00→17:00)
[2022-05-20] MEDS: PROSOURCE / PROSTAT (PYXIS) 30 ML UDC GT SCH ×2 (09:00→17:41)
--- NOTE | 2022-05-20 09:31 | NUR ---
MS RN NOTE PATIENT REFUSED TO TAKE MEDICATION AT THIS TIME. SHE SAID SHE WANTS TO EAT BEFORE TAKING HER MEDICATION BUT DOESNT FEEL LIKE EATING RIGHT NOW AND JUST WANTS TO SLEEP. HEALTH TEACHING DONE REGARDING IMPORTANCE OF TAKING MEDICATION AT A SCHEDULED TIME. IN STABLE CONDITION.
[2022-05-20 11:56] LABS: LYMPHOCYTES # (AUTO) 1.8 K/uL (0.8-4.8)
[2022-05-20 12:00] LABS: ALBUMIN 2.4 g/dL (3.4-5.0); BILIRUBIN,TOTAL 0.3 mg/dL (0.2-1.0); CALCIUM, SERUM 8.2 mg/dL (8.5-10.1); CREATININE 0.8 mg/dL (0.6-1.3); PHOSPHORUS 3.5 mg/dL (2.5-4.9); POTASSIUM 3.6 mmol/L (3.5-5.1); TOTAL PROTEIN, SERUM 5.8 g/dL (6.4-8.2)
[2022-05-20] MEDS ORDERED: LETROZOLE 2.5 MG TABLET PO SCH (12:00)
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
[2022-05-20 12:04] LABS: BASOPHILS % (AUTO) 0.6 % (0.0-2.0); EOSINOPHILS % (AUTO) 3.1 % (0.0-6.0); LYMPHOCYTES % (AUTO) 23.3 % (20.0-44.0); MONOCYTES # (AUTO) 0.4 K/uL (0.1-1.30); MONOCYTES % (AUTO) 5.5 % (2.0-12.0); NEUTROPHILS # (AUTO) 5.3 K/uL (1.8-8.9); NEUTROPHILS % (AUTO) 67.5 % (43.0-81.0)
[2022-05-20] MEDS: NEOMY SULF/BACITRAC ZN/POLY 15 GM TUBE TP SCH ×2 (13:02→17:41)
[2022-05-20] MEDS: SILVER SULFADIAZINE CREAM 25 GM TUBE TP SCH (13:03)
[2022-05-20] MEDS: MULTIVITAMIN/LUTEIN/MINERALS 1 TAB PO SCH (13:28)
[2022-05-20] MEDS: METOPROLOL TARTRATE 25 MG TABLET PO SCH (13:29)
--- NOTE | 2022-05-20 13:43 | NUR ---
MS RN NOTE PATIENT MARTIN SHE TAKES FEMARA AT 12 MIDNIGHT EVERY DAY. MD NOTIFIED WITH ORDERS
--- NOTE | 2022-05-20 13:58 | NUR ---
MS RN NOTE PATIENT REFUSED ALL SCHEDULED MEDICATIONS BUT SAID SHE IS READY TO TAKE THE METOPROLOL AND THE I-LIZET/OCUVITE SINCE SHE ALREADY ATE. MEDICATIONS GIVEN. IN STABLE CONDITION.
[2022-05-20 16:00] VITALS: BP 125/70
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
[2022-05-20 19:18] LABS: PLATELET COUNT (AUTO) 65 K/uL (150-450); WHITE BLOOD COUNT (AUTO) 8.7 K/uL (4.3-11.0)
[2022-05-20 19:19] LABS: HEMATOCRIT 36 % (33-45); HEMOGLOBIN 11.1 g/dL (11.5-14.8); MEAN CORPUSCULAR VOLUME 86 fL (82-100); RED BLOOD CELL COUNT(AUTO) 4.13 MIL/uL (4.0-5.2)
[2022-05-20 19:20] LABS: MEAN CORPUSCULAR HGB CONC 31 g/dl (31.0-36.0)
[2022-05-20 19:24] LABS: EOSINOPHILS % (MANUAL) 1 % (0-4); LYMPHOCYTES % (MANUAL) 15 % (16-48); MONOCYTES % (MANUAL) 2 % (0-11.0); NEUTROPHILS % (MANUAL) 82 (42-76)
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
[2022-05-20 20:26] VITALS: BP 116/61
[2022-05-20] MEDS: ENOXAPARIN SODIUM 30 MG/0.3 ML DISP.SYRIN SQ SCH (21:00)
--- NOTE | 2022-05-20 21:07 | NUR ---
RN NOTES PATIENT REFUSED LENOVOX DESPITE OF EXPLAINING THE RISK AND BENEFITS. WILL CONTINUE TO MONITOR
[2022-05-21] MEDS: LETROZOLE 2.5 MG TABLET PO SCH (00:01)
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
[2022-05-21 07:00] VITALS: BP 161/77
[2022-05-21 07:15] LABS: BASOPHILS % (AUTO) 0.4 % (0.0-2.0); EOSINOPHILS % (AUTO) 2.5 % (0.0-6.0); HEMATOCRIT 28 % (33-45); HEMOGLOBIN 9.1 g/dL (11.5-14.8); LYMPHOCYTES # (AUTO) 1.7 K/uL (0.8-4.8); LYMPHOCYTES % (AUTO) 18.4 % (20.0-44.0); MEAN CORPUSCULAR HGB CONC 32 g/dl (31.0-36.0); MEAN CORPUSCULAR VOLUME 85 fL (82-100); MONOCYTES # (AUTO) 0.5 K/uL (0.1-1.30); MONOCYTES % (AUTO) 5.7 % (2.0-12.0); NEUTROPHILS # (AUTO) 6.6 K/uL (1.8-8.9); RED BLOOD CELL COUNT(AUTO) 3.34 MIL/uL (4.0-5.2); WHITE BLOOD COUNT (AUTO) 9.1 K/uL (4.3-11.0)
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
[2022-05-21 07:24] LABS: CALCIUM, SERUM 8.2 mg/dL (8.5-10.1); CREATININE 0.7 mg/dL (0.6-1.3); MAGNESIUM 2.1 mg/dL (1.8-2.4); PHOSPHORUS 3.3 mg/dL (2.5-4.9); POTASSIUM 3.8 mmol/L (3.5-5.1)
[2022-05-21] MEDS: PANTOPRAZOLE 40 MG TABLET.DR PO SCH (07:30)
[2022-05-21 08:28] LABS: PLATELET COUNT (AUTO) 37 K/uL (150-450)
[2022-05-21] MEDS: SILVER SULFADIAZINE CREAM 25 GM TUBE TP SCH (09:00)
[2022-05-21] MEDS: NEOMY SULF/BACITRAC ZN/POLY 15 GM TUBE TP SCH (09:00)
[2022-05-21] MEDS: MULTIVITAMIN/LUTEIN/MINERALS 1 TAB PO SCH (09:00)
[2022-05-21 09:02] LABS: IRON, SERUM 18 ug/dl (50-175); TOTAL IRON BINDING CAPACITY 213 ug/dl (250-450)
[2022-05-21 09:16] LABS: FERRITIN 102 ng/mL (8-388)
--- NOTE | 2022-05-21 09:25 | NUR ---
RN NOTES; PLATELETS = 35, REPORTED BY JORDNA, LAB STAFF, NOTIFIED JOO HOSPITALIST.
[2022-05-21] MEDS: ENSURE ENLIVE 237 ML LIQUID (VANILLA) PO SCH ×3 (09:31→16:29)
[2022-05-21] MEDS: PROSOURCE / PROSTAT (PYXIS) 30 ML UDC GT SCH ×2 (09:32→16:29)
--- NOTE | 2022-05-21 09:51 | NUR ---
RN NOTES; PT REFUSED AM MEDS, RN EXPLAINED RATIONALE OF MEDICATION, PT STILL REFUSED, WILL OFFER BP MEDS WHEN PT IS AWAKE.
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
[2022-05-21 10:55] LABS: EOSINOPHILS % (MANUAL) 3 % (0-4); LYMPHOCYTES % (MANUAL) 17 % (16-48); MONOCYTES % (MANUAL) 2 % (0-11.0); NEUTROPHILS % (MANUAL) 78 (42-76)
[2022-05-21] MEDS ORDERED: SOD FERRIC GLUC 125 MG in IV NS 0.9% 100 ML IV SCH (14:00)
[2022-05-21] MEDS: METOPROLOL TARTRATE 25 MG TABLET PO SCH (15:40)
[2022-05-21 16:00] VITALS: BP 135/62
[2022-05-21] MEDS: GENTAMICIN 0.1% OINT 15 GM TUBE TP SCH (16:28)
[2022-05-21] MEDS: FERROUS SULFATE (325 MG) 325 MG/TAB TABLET PO SCH (16:30)
--- NOTE | 2022-05-21 19:30 | NUR ---
RN Opening Notes Received pt in bed, awake. No respiratory distress noted. Patient stable. All needs met at this time.
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
[2022-05-21 20:00] VITALS: BP 74/43
--- NOTE | 2022-05-21 20:00 | NUR ---
REJI Notes Patient had episode of hypotension. Patient is still AOx4. Will reassess blood pressure. Addendum: 05/21/22 at 2233 by CISCO XIONG RN No symptoms with hypotension.
[2022-05-21 21:00] VITALS: BP 125/62
[2022-05-21] MEDS: ENOXAPARIN SODIUM 30 MG/0.3 ML DISP.SYRIN SQ SCH (21:00)
--- NOTE | 2022-05-21 21:00 | NUR ---
RN Notes Reassessed blood pressure. Reading as follows 125/62 and pulse of 76. Patient AOx4.
[2022-05-22] MEDS: LETROZOLE 2.5 MG TABLET PO SCH (00:04)
--- NOTE | 2022-05-22 06:53 | NUR ---
RN Closing Notes Pt in bed, asleep, awakens to verbal stimuli. No respiratory distress noted. Patient stable. All needs met. All orders carried out. Pt kept clean and dry. Wound care done. Will endorse to oncoming shift for [place].
[2022-05-22] MEDS: PANTOPRAZOLE 40 MG TABLET.DR PO SCH ×2 (07:30→08:52)
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
[2022-05-22 08:00] VITALS: BP 159/94
[2022-05-22] MEDS: MULTIVITAMIN/LUTEIN/MINERALS 1 TAB PO SCH (08:52)
[2022-05-22] MEDS: ENSURE ENLIVE 237 ML LIQUID (VANILLA) PO SCH ×3 (08:52→17:50)
[2022-05-22] MEDS: METOPROLOL TARTRATE 25 MG TABLET PO SCH (08:52)
[2022-05-22] MEDS: FERROUS SULFATE (325 MG) 325 MG/TAB TABLET PO SCH ×2 (08:52→16:45)
[2022-05-22] MEDS: PROSOURCE / PROSTAT (PYXIS) 30 ML UDC GT SCH ×2 (08:53→17:49)
[2022-05-22] MEDS: GENTAMICIN 0.1% OINT 15 GM TUBE TP SCH ×2 (09:00→17:50)
--- NOTE | 2022-05-22 11:32 | NUR ---
RN NOTES: PER HOSPITALIST HOLD PM LOVENOX, PLATELET = 35
[2022-05-22] MEDS ORDERED: GENTAMICIN 0.1% TP (13:53)
[2022-05-22] MEDS ORDERED: FERR325T28 PO (13:53)
[2022-05-22] MEDS ORDERED: SOD FERRIC GLUC 125 MG in IV NS 0.9% 100 ML IV SCH (14:00)
[2022-05-22 14:35] LABS: BASOPHILS % (AUTO) 0.5 % (0.0-2.0); EOSINOPHILS % (AUTO) 2.4 % (0.0-6.0); HEMATOCRIT 29 % (33-45); HEMOGLOBIN 9.3 g/dL (11.5-14.8); LYMPHOCYTES % (AUTO) 10.4 % (20.0-44.0); MEAN CORPUSCULAR HGB CONC 32 g/dl (31.0-36.0); MEAN CORPUSCULAR VOLUME 85 fL (82-100); MONOCYTES # (AUTO) 0.4 K/uL (0.1-1.30); MONOCYTES % (AUTO) 4.5 % (2.0-12.0); NEUTROPHILS # (AUTO) 7.9 K/uL (1.8-8.9); NEUTROPHILS % (AUTO) 82.2 % (43.0-81.0); RED BLOOD CELL COUNT(AUTO) 3.47 MIL/uL (4.0-5.2); WHITE BLOOD COUNT (AUTO) 9.6 K/uL (4.3-11.0)
[2022-05-22 15:05] LABS: ALBUMIN 2.4 g/dL (3.4-5.0); BILIRUBIN,TOTAL 0.2 mg/dL (0.2-1.0); CALCIUM, SERUM 8.3 mg/dL (8.5-10.1); CREATININE 0.7 mg/dL (0.6-1.3); MAGNESIUM 2.1 mg/dL (1.8-2.4); PHOSPHORUS 3.7 mg/dL (2.5-4.9); POTASSIUM 3.7 mmol/L (3.5-5.1); TOTAL PROTEIN, SERUM 5.9 g/dL (6.4-8.2)
[2022-05-22 15:09] LABS: PLATELET COUNT (AUTO) 50 K/uL (150-450)
[2022-05-22 16:00] VITALS: BP 138/69
[2022-05-22 16:37] LABS: EOSINOPHILS % (MANUAL) 2 % (0-4); LYMPHOCYTES % (MANUAL) 10 % (16-48); MONOCYTES % (MANUAL) 4 % (0-11.0); NEUTROPHILS % (MANUAL) 84 (42-76)
--- NOTE | 2022-05-22 18:11 | NUR ---
RN NOTES: [phone] FOR REPORT, 2X, CALLS WENT TO VOICEMAIL, RN LEFT CONTACT # TO CALL UNIT FOR REPORT
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
== END 2022-05-23 | DRG 935 ==
LOC: ER 15:29 → TELE 05-18 00:27 → MED 05-18 00:38
PROVIDERS: ADMIT Registered Nurse; ATTEND Nurse Practitioner Acute Care
DX: T20.29XA Burn of second degree of multiple sites of head, face, and neck, initial encounter (principal); Z68.1 Body mass index [BMI] 19.9 or less, adult; E44.0 Moderate protein-calorie malnutrition; D61.818 Other pancytopenia; Z79.811 Long term (current) use of aromatase inhibitors; R62.7 Adult failure to thrive; Z20.822 Contact with and (suspected) exposure to COVID-19; I10 Essential (primary) hypertension; Z85.3 Personal history of malignant neoplasm of breast; Z79.899 Other long term (current) drug therapy; S00.83XA Contusion of other part of head, initial encounter; R29.6 Repeated falls; T31.0 Burns involving less than 10% of body surface; X10.1XXA Contact with hot food, initial encounter; Y92.000 Kitchen of unspecified non-institutional (private) residence as the place of occurrence of the external cause; F17.200 Nicotine dependence, unspecified, uncomplicated; W18.30XA Fall on same level, unspecified, initial encounter; Z91.81 History of falling; Z87.81 Personal history of (healed) traumatic fracture; D69.6 Thrombocytopenia, unspecified; E87.6 Hypokalemia; E88.09 Other disorders of plasma-protein metabolism, not elsewhere classified; D50.9 Iron deficiency anemia, unspecified; R79.89 Other specified abnormal findings of blood chemistry
CPT/HCPCS: 36415; 70450-TC; 70486-TC; 72125-TC; 80048-TC; 80053-TC; 80076-TC; 82728-TC; 83540-TC; 83690-TC; 83735-TC; 84100-TC; 84443-TC; 85025-TC; 85730-TC; 87081-TC; 93307-TC; 97110-TC; 97112-TC; 97116-TC; 97530-TC; A4223; C9803; G0378; J1650; J2916; J7030